=== PATIENT | male | born 1960 | race African-American/Black ===

== ENCOUNTER 2017-02-12 18:23 | Emergency (ER) | payer OTHER, BC ==
[~2017-02-12] VITALS: Ht 175.3 cm; Wt 84.0 kg
[~2017-02-12 18:23] MED LIST: ADULT ASPIRIN L81 MG; ASPIRIN EC81 MG PO; AUGMENTIN875 MG OR; COREG25 MG PO; FLEXERIL10 MG PO; FLEXERIL5 MG PO; GLYBURIDE/METFO1 TAB OR; GLYBURIDE5 MG PO; JANUVIA100 MG PO; MEDDOSEPAK PO; METFORMIN500 MG PO; NAPROXEN500 MG PO; NORCO1 TA1 PO; SIMVASTATIN40 MG PO
[2017-02-12 18:56] LABS: HEMATOCRIT 38.7 % (39.0-50.0); HEMOGLOBIN 13.3 g/dl (14.0-18.0); IMMATURE GRANULOCYTES 0.2 % (0.0-1.0); MEAN CORPUSCULAR HGB 29.6 pG CALC (26.0-32.0); MEAN CORPUSCULAR HGB CONC 34.4 g/L CALC (32.0-36.0); NEUT# 2.63 thou/uL (1.82-7.42); RED BLOOD COUNT 4.5 mill/uL (4.70-6.10); RED CELL DISTRI WIDTH 13.7 % (11.5-15.5)
[2017-02-12] MEDS ORDERED: VICTOZA18 MG/3 ML SC (18:57)
[2017-02-12 19:08] LABS: ALBUMIN 4.7 g/dL (3.2-5.0); ALKALINE PHOSPHATASE 51 u/l (38-126); ANION GAP 20 (6-22 (CALC)); BILIRUBIN, TOTAL 0.5 mg/dL (0.0-1.4); BUN 17 mg/dL (9-20); BUN/CREATININE RATIO 13 (12-20 (CALC)); CALCIUM 9.4 mg/dL (8.4-10.2); CARBON DIOXIDE 23 mmol/l (22-30); CHLORIDE 102 mmol/l (95-108); CREATININE 1.3 mg/dL (0.7-1.3); GFR 57 ML/MIN (>=60 (CALC)); GFR FOR AFR.AMER. > 60 ML/MIN (>=60 (CALC)); GLUCOSE 100 mg/dL (75-110); POTASSIUM 4.2 mmol/l (3.5-5.1); SGOT/AST 23 u/l (17-59); SGPT/ALT 22 u/l (21-72); SODIUM 141 mmol/l (137-146); TOTAL PROTEIN 8.7 g/dL (6.3-8.2)
[2017-02-12 19:09] LABS: AMYLASE 63 u/l (30-110); LIPASE 122 u/l (23-300)
[2017-02-12 19:20] LABS: MYOGLOBIN 54 ng/mL (0 - 121)
[2017-02-12] MEDS ORDERED: PREVACID30 M3 PO (19:46)
[2017-02-12 20:00] VITALS: BP 127/77
== END 2017-02-12 20:12 | disposition home or self-care (01) | DRG 392 ==
LOC: ED 18:23
PROVIDERS: Emergency Medicine
DX: K21.9 Gastro-esophageal reflux disease without esophagitis (principal); I10 Essential (primary) hypertension; R10.13 Epigastric pain; R06.02 Shortness of breath

== ENCOUNTER 2019-04-07 08:16 | Emergency (ER) | payer OTHER ==
[~2019-04-07] VITALS: Ht 175.3 cm; Wt 91.0 kg
[~2019-04-07 08:16] MED LIST changes: +PREVACID30 M3 PO; +VICTOZA18 MG/3 ML SC
[2019-04-07] MEDS ORDERED: TRESIBA FL100 UNIT/M SC (08:33)
[2019-04-07] MEDS ORDERED: MEDDOSEPAK PO (08:51)
[2019-04-07] MEDS ORDERED: PROVENTIL HFA IN (08:51)
[2019-04-07 09:17] LABS: HEMATOCRIT 39.4 % (39.0-50.0); HEMOGLOBIN 13.3 g/dl (14.0-18.0); IMMATURE GRANULOCYTES 0.2 % (0.0-5.0); MEAN CELL VOLUME 85.3 fL CALC (80.0-100.0); MEAN CORPUSCULAR HGB 28.8 pG CALC (26.0-32.0); MEAN CORPUSCULAR HGB CONC 33.8 g/L CALC (32.0-36.0); NEUT# 2.46 thou/uL (1.82-7.42); RED BLOOD COUNT 4.62 mill/uL (4.70-6.10); RED CELL DISTRI WIDTH 13.6 % (11.5-15.5)
[2019-04-07 09:28] LABS: ALBUMIN 4.3 g/dL (3.2-5.0); ALKALINE PHOSPHATASE 65 u/l (38-126); ANION GAP 15 (6-22 (CALC)); BILIRUBIN, TOTAL 0.4 mg/dL (0.0-1.4); BUN 18 mg/dL (9-20); BUN/CREATININE RATIO 15 (12-20 (CALC)); CARBON DIOXIDE 22 mmol/l (22-30); CHLORIDE 104 mmol/l (95-108); CREATININE 1.3 mg/dL (0.7-1.3); GFR 57 ML/MIN (>=60 (CALC)); GFR FOR AFR.AMER. > 60 ML/MIN (>=60 (CALC)); LIPASE 182 u/l (23-300); POTASSIUM 4.2 mmol/l (3.5-5.1); SGOT/AST 17 u/l (17-59); SODIUM 137 mmol/l (137-146); TOTAL PROTEIN 7.6 g/dL (6.3-8.2)
[2019-04-07] MEDS ORDERED: FLEXERIL PO (10:05)
[2019-04-07 10:28] VITALS: BP 137/83
== END 2019-04-07 10:28 | disposition home or self-care (01) | DRG 313 ==
LOC: ED 08:16
PROVIDERS: Emergency Medicine
DX: R07.89 Other chest pain (principal); E11.9 Type 2 diabetes mellitus without complications; Z79.4 Long term (current) use of insulin

== ENCOUNTER 2020-09-23 07:59 | Day surgery (SDC) | payer SELFPAY ==
[~2020-09-23] VITALS: Ht 175.3 cm; Wt 91.6 kg
[~2020-09-23 07:59] MED LIST changes: +FLEXERIL PO; +GLIPIZIDE10 MG PO; +LISINOPRIL20 MG PO; +PROVENTIL HFA IN; +TRESIBA FL100 UNIT/M SC
[2020-09-23 10:28] VITALS: BP 141/66
== END 2020-09-23 10:40 | disposition home or self-care (01) | DRG 951 ==
LOC: ENDO 07:59
PROVIDERS: ATTEND Surgery
PROC: 0DJD8ZZ Inspection of Lower Intestinal Tract, Via Natural or Artificial Opening Endoscopic (ICD-10-PCS; principal; 2020-09-23)
DX: Z12.11 Encounter for screening for malignant neoplasm of colon (principal); I10 Essential (primary) hypertension; E11.9 Type 2 diabetes mellitus without complications; Z79.4 Long term (current) use of insulin; Z20.828 Contact with and (suspected) exposure to other viral communicable diseases

== ENCOUNTER 2022-05-16 16:11 | Emergency (ER) | payer BC ==
[2022-05-16] VITALS (10 sets, daily range): BP systolic 160–182; BP diastolic 79–102
[~2022-05-16] VITALS: Ht 175.3 cm; Wt 88.6 kg
[2022-05-16 17:28] LABS: HEMATOCRIT 39.9 % (39.0-50.0); HEMOGLOBIN 13.6 g/dl (14.0-18.0); IMMATURE GRANULOCYTES 0.2 % (0.0-5.0); MEAN CELL VOLUME 86.7 fL CALC (80.0-100.0); MEAN CORPUSCULAR HGB 29.6 pG CALC (26.0-32.0); MEAN CORPUSCULAR HGB CONC 34.1 g/dL CAL (32.0-36.0); NEUT# 5.09 thou/uL (1.82-7.42); RED BLOOD COUNT 4.6 mill/uL (4.70-6.10); RED CELL DISTRI WIDTH 13.3 % (11.5-15.5)
[2022-05-16 18:20] LABS: URINE BILIRUBIN - DIPSTICK NEGATIVE (NEGATIVE); URINE BLOOD DIPSTICK TRACE-INTACT (NEGATIVE); URINE COLOR YELLOW; URINE GLUCOSE - DIPSTICK >=1000 mg/dL (NEGATIVE); URINE KETONE NEGATIVE (NEGATIVE); URINE LEUK ESTERASE NEGATIVE (NEGATIVE); URINE PROTEIN - DIPSTICK 100 mg/dL (NEG-TRACE); URINE SPECIFIC GRAVITY 1.025; URINE UROBILINOGEN - DIPSTICK 0.2 E.U./dL (0.2)
[2022-05-16 18:22] LABS: URINE NITRITE - DIPSTICK NEGATIVE (Negative); URINE RBC 0-2 RBC/hpf (0-5); URINE WBC 0-2 WBC/hpf (0-5)
[2022-05-16 18:29] LABS: ALBUMIN 4.1 g/dL (3.2-5.0); BILIRUBIN, TOTAL 0.4 mg/dL (0.0-1.4); CREATININE 1.5 mg/dL (0.7-1.3); TOTAL PROTEIN 7.4 g/dL (6.3-8.2)
[2022-05-16] MEDS ORDERED: LORTAB 5/3255 MG PO (19:33)
== END 2022-05-16 19:47 | disposition home or self-care (01) | DRG 563 ==
LOC: ED 16:11
PROVIDERS: Nurse Practitioner
DX: S39.011A Strain of muscle, fascia and tendon of abdomen, initial encounter (principal); I10 Essential (primary) hypertension; E11.9 Type 2 diabetes mellitus without complications; Z79.84 Long term (current) use of oral hypoglycemic drugs; Z79.4 Long term (current) use of insulin; X50.0XXA Overexertion from strenuous movement or load, initial encounter